=== PATIENT | male | born 1995 | race Caucasian/White ===

== ENCOUNTER 2019-01-26 08:36 | Emergency (ER) | payer SELFPAY ==
[~2019-01-26] VITALS: Ht 175.3 cm; Wt 68.0 kg
[2019-01-26] MEDS ORDERED: CLINDAMYCIN 600MG / 50ML 50 ML IV STA (09:25)
[2019-01-26] MEDS ORDERED: SODIUM CHLORIDE 0.9% 1000ML 1,000 ML IV SCH (09:30)
[2019-01-26 09:46] LABS: BASOPHILS % 0.3 % (0.0-1.0); EOSINOPHILS # (AUTO) 0.2 (0.0-0.4); EOSINOPHILS % 1.3 % (0.0-6.0); HEMATOCRIT 43.2 % (38.2-49.6); HEMOGLOBIN 14.7 g/dL (14.0-18.0); LYMPHOCYTES # (AUTO) 2.1 (1.0-3.2); LYMPHOCYTES % 15.2 % (18.0-39.1); MEAN CORPUSCULAR HEMOGLOBIN 27.7 pg (28-32); MEAN CORPUSCULAR VOLUME 81.4 fL (81-99); MONOCYTES # (AUTO) 1.6 (0.2-0.8); MONOCYTES % 11.3 % (4.4-11.3); NEUTROPHILS # (AUTO) 9.9 (2.1-6.9); NEUTROPHILS % 71.7 % (38.7-80.0); PLATELET COUNT 226 x10e3/uL (140-360); RED BLOOD COUNT 5.31 x10e6/uL (4.3-5.7); RED CELL DISTRIBUTION WIDTH 13.7 % (11.7-14.4)
[2019-01-26 10:02] LABS: ALANINE AMINOTRANSFERASE 15 IU/L (0-55); ALBUMIN 3.2 g/dL (3.5-5.0); ALBUMIN/GLOBULIN RATIO 0.8 (0.8-2.0); ALKALINE PHOSPHATASE 72 IU/L (40-150); ANION GAP 10.6 mmol/L (8-16); BLOOD UREA NITROGEN 7 mg/dL (7-26); BUN/CREATININE RATIO 8 (6-25); CALCIUM 9.1 mg/dL (8.4-10.2); CARBON DIOXIDE 28 mmol/L (22-29); CHLORIDE 101 mmol/L (98-107); CREATININE, SERUM 0.89 mg/dL (0.72-1.25); EST GLOMERULAR FILTRATION RATE > 60 ML/MIN (60-); GLUCOSE 100 mg/dL (74-118); POTASSIUM 3.6 mmol/L (3.5-5.1); SODIUM 136 mmol/L (136-145)
[2019-01-26] MEDS ORDERED: SODIUM CHLORIDE 0.9% 50ML 50 ML ONE (11:28)
[2019-01-26] MEDS ORDERED: IOPAMIDOL 370 MG/ML 200 ML INFUS..BTL INJ ONE (11:28)
--- NOTE | 2019-01-26 12:17 | Diagnostic Imaging Report ---
History:Right side swelling Comparison studies: None Technique: Axial images were obtained through the facial region. Coronal and sagittal images reconstructed from the axial data. Intravenous contrast: 100 cc of Omnipaque 300. Dose modulation, iterative reconstruction, and/or weight based adjustment of the mA/kV was utilized to reduce the radiation dose to as low as reasonably achievable. Findings: Soft tissues: Right central premaxillary and perimandibular soft tissue swelling with associated central hypodensity measuring 1.8 x 1.5 x 0.8 cm (SI-AP-Trans). Bones: No fractures or acute bony abnormalities. Periapical lucency at the right central and lateral incisors, dentition #7 and 8. Other dental cavities and missing dentition are seen, better assess clinically . Orbits: Globes: Intact. Extra or intraconal abnormalities: None. Paranasal sinuses: Mild mucosal thickening at the bilateral maxillary sinuses. IMPRESSION: 1. Right premaxillary and perimandibular phlegmonous changes with associated 1.5 cm abscess. 2. Multiple dental and periodontal disease, better assess clinically. Signed by: DR Tico Carroll M.D. on 01/26/2019 12:14 PM
[2019-01-26] MEDS ORDERED: LIDOCAINE HCL 1% LOCAL INJ 20 ML VIAL INJ ONE (12:45)
--- NOTE | 2019-01-26 12:52 | NUR ---
DR. CANTRELL AT BEDSIDE DOING I&D
== END 2019-01-26 13:46 | disposition home or self-care (01) ==
LOC: ER 08:36
DX: L02.01 Cutaneous abscess of face (principal); F17.210 Nicotine dependence, cigarettes, uncomplicated
CPT/HCPCS: 10060; 36415; 70487; 80053; 85025; 99284; J7030; Q9967